=== PATIENT | male | born 1995 | race Hispanic/Latino ===

== ENCOUNTER 2023-12-30 20:28 | Emergency (ER) | payer OTHER ==
[2023-12-30 21:41] LABS: Influenza A by NAA DETECTED (NotDetected); Influenza B by NAA Not Detected (NotDetected); SARS-CoV-2 NAA Rapid Test Not Detected (NotDetected)
[2023-12-30] MEDS ORDERED: Acetaminophen 500 MG TAB ONE (21:49)
== END 2023-12-30 22:24 | disposition home or self-care (01) ==
LOC: CSHERS 20:28
DX: J10.1 Influenza due to other identified influenza virus with other respiratory manifestations (principal)
CPT/HCPCS: 99283